=== PATIENT | male | born 1955 | race Caucasian/White ===

== ENCOUNTER 2018-03-13 13:06 | Day surgery (SDC) | payer BC ==
[2018-03-13] MEDS ORDERED: PROPOFOL 60 ML (17:42)
== END 2018-03-13 18:22 | disposition home or self-care (01) ==
LOC: GIL 13:06
DX: R19.4 Change in bowel habit (principal); K62.89 Other specified diseases of anus and rectum
CPT/HCPCS: 45380; 88305